=== PATIENT | female | born 1990 | race Caucasian/White ===

== ENCOUNTER 2017-05-07 14:27 | Emergency (ER) | payer MEDICAID ==
[2017-05-07 15:00] VITALS: BP 138/92; PULSE 99; RESP 20; TEMP 99; O2SAT 99
--- NOTE | 2017-05-07 15:06 | C.PDOC ---
History Of Present Illness 26 y/o female, history of depression and suicidal ideation, presents to ED after an argument at her home with family members, brought by police for potential agitation. Patient currently states she has no symptoms of suicidal ideation or homicidal ideation. Time Seen by Provider: 05/07/17 15:03 Chief Complaint (Nursing): Psychiatric Evaluation History Per: Patient History/Exam Limitations: no limitations Current Symptoms Are (Timing): Still Present Suicide/Self Injury Attempted (Context): None Modifying Factor(s): None Associated Symptoms: denies: Depression, Suicidal Thoughts, Suicidal Plan Recent travel outside of the [place]: No Past Medical History Reviewed: Historical Data, Nursing Documentation, Vital Signs Vital Signs: Last Vital Signs Temp 99 F 05/07/17 14:40 Pulse 99 H 05/07/17 14:40 Resp 20 05/07/17 14:40 BP 138/92 H 05/07/17 14:40 Pulse Ox 99 05/07/17 15:10 - Medical History PMH: Bipolar Disorder, Hypothyroidism Family History: States: Unknown Family Hx - Social History Hx Alcohol Use: No Hx Substance Use: No - Immunization History Hx Tetanus Toxoid Vaccination: No Hx Influenza Vaccination: No Hx Pneumococcal Vaccination: No Review Of Systems Except As Marked, All Systems Reviewed And Found Negative. Constitutional: Negative for: Fever, Chills Cardiovascular: Negative for: Chest Pain Respiratory: Negative for: Cough, Shortness of Breath Gastrointestinal: Negative for: Nausea, Vomiting, Abdominal Pain Skin: Negative for: Rash Psych: Negative for: Suicidal ideation Physical Exam - Physical Exam Appears: Non-toxic, No Acute Distress Skin: Normal Color, Warm, Dry Head: Atraumatic, Normacephalic Chest: Symmetrical Cardiovascular: Rhythm Regular Respiratory: Normal Breath Sounds, No Rales, No Rhonchi, No Wheezing Gastrointestinal/Abdominal: Soft, No Tenderness, No Guarding, No Rebound Back: Normal Inspection Extremity: Normal ROM, Capillary Refill (< 2 sec.) Neurological/Psych: Oriented x3, Normal Speech, Normal Cognition ED Course And Treatment O2 Sat by Pulse Oximetry: 99 (RA) Pulse Ox Interpretation: Normal Progress Note: Patient evaluated by crisis in ER. Cleared for discharge. Pt feels comfortable with plan of discharge, advised to follow up with PMD/clinic within 1-2 days. Disposition - Disposition Referrals: [facility] [Outside] [facility] [Outside] Disposition: HOME/ ROUTINE Disposition Time: 15:04 Condition: GOOD Additional Instructions: Follow up with outpatient psych. Return if worsened. Instructions: Bipolar Disorder (ED) - Clinical Impression Clinical Impression: Normal exam - PA / DATA CENTER CONSULTANT / Resident Statement MD/DO has reviewed & agrees with the documentation as recorded. - Scribe Statement The provider has reviewed the documentation as recorded by the Scribe Luis Antonio Lovell All medical record entries made by the Omega were at my direction and personally dictated by me. I have reviewed the chart and agree that the record accurately reflects my personal performance of the history, physical exam, medical decision making, and the department course for this patient. I have also personally directed, reviewed, and agree with the discharge instructions and disposition.
== END 2017-05-07 15:18 | disposition home or self-care (01) ==
LOC: C.ER 14:27
DX: Z00.8 Encounter for other general examination (principal)

== ENCOUNTER 2018-02-03 17:04 | Emergency (ER) | payer OTHER, MEDICAID ==
[2018-02-03 17:17] VITALS: RESP 18
[2018-02-03] MEDS ORDERED: Sodium Chloride 0.9% 1,000 ML IV ONE (18:08)
--- NOTE | 2018-02-03 18:23 | C.PDOC ---
History Of Present Illness 27yo female presents to ED with complaints of a dry cough, and intermittent episodes of tactile fever for the past 1 week. Patient also reports she has intermittent episodes of dizziness, lasting approximately 20-25 seconds for the past week but does not feel dizzy at present. She was evaluated for these symptoms at an urgent care center and no medication was given. She has been taking OTC cough syrup for her symptoms with some relief. She also reports chest and back "soreness" due to the cough. History of hypothyroidsm- doesn't take medication per her doctor. Time Seen by Provider: 02/03/18 17:56 Chief Complaint (Nursing): Flu-like Symptoms History Per: Patient History/Exam Limitations: no limitations Onset/Duration Of Symptoms: Days Current Symptoms Are (Timing): Still Present Sick Contacts (Context): None Associated Symptoms: Fever (tactile), Cough. denies: Nausea, Vomiting, Diarrhea Past Medical History Reviewed: Historical Data, Nursing Documentation, Vital Signs Vital Signs: Last Vital Signs Temp 97.8 F 02/03/18 19:51 Pulse 81 02/03/18 19:51 Resp 18 02/03/18 19:51 BP 113/73 02/03/18 19:51 Pulse Ox 98 02/03/18 19:51 - Medical History PMH: Bipolar Disorder, Hypothyroidism Denies: Chronic Kidney Disease Surgical History: No Surg Hx Family History: States: Unknown Family Hx - Social History Hx Alcohol Use: No Hx Substance Use: Yes - Immunization History Hx Tetanus Toxoid Vaccination: No Hx Influenza Vaccination: No Hx Pneumococcal Vaccination: No Review Of Systems Except As Marked, All Systems Reviewed And Found Negative. Constitutional: Positive for: Fever (tactile), Weakness Cardiovascular: Positive for: Chest Pain (discomfort) Respiratory: Positive for: Cough. Negative for: Sputum Musculoskeletal: Positive for: Back Pain (due to cough) Neurological: Positive for: Dizziness Physical Exam - Physical Exam Appears: Non-toxic, No Acute Distress Skin: Warm, Dry Head: Atraumatic, Normacephalic Eye(s): bilateral: Normal Inspection, PERRL, EOMI Nose: Normal Oral Mucosa: Moist Neck: Normal ROM, Supple ((-) brudzinski and kernig) Chest: Symmetrical, Tenderness (reproducible anterior wall tenderness) Cardiovascular: Rhythm Regular Respiratory: Normal Breath Sounds, No Wheezing Gastrointestinal/Abdominal: Normal Exam, Soft, No Tenderness Back: Normal Inspection Extremity: Normal ROM, No Pedal Edema, No Deformity Neurological/Psych: Oriented x3, Normal Speech, Normal Cognition, Normal Cranial Nerves (2-12 intact, no focal deficits), Normal Motor, Normal Sensation Gait: Steady ED Course And Treatment - Laboratory Results Result Diagrams: 02/03/18 18:31 02/03/18 18:31 O2 Sat by Pulse Oximetry: 95 (RA) Pulse Ox Interpretation: Normal Progress Note: Labs and CXR ordered. Patient given IV Fluids. On reassessment, patient is resting comfortably, and is in no acute distress. No dizziness, chest pain , abdominal pain. remains afebrile. Tolerating po. Denies headache. No cough exhibited throughout er stay. Pt was instructed symptomatic treatment and to follow up with PMD in 1-2 days. Case discussed with Dr Chavez, danyel ryder plan and discharge. Disposition - Disposition Disposition: HOME/ ROUTINE Disposition Time: 19:25 Condition: STABLE Additional Instructions: Follow up with your primary medical doctor or clinic in 2-5 days for further evaluation. Take medications as prescribed. Return to the emergency department at any time if symptoms persist or worsen. Prescriptions: Benzonatate [Tessalon Perle] 100 mg PO TID PRN #15 capsule PRN Reason: Cough Ibuprofen [Motrin] 600 mg PO Q6 PRN #20 tab PRN Reason: Pain, Mild (1-3) Meclizine [Meclizine*] 25 mg PO BID #20 tab Instructions: Viral Upper Respiratory Infection, Adult (DC) Forms: [employer] ([place]) - Clinical Impression Clinical Impression: Dizziness, URI (upper respiratory infection)
[2018-02-03 18:36] LABS: BASO # 0.1 K/uL (0.0-0.2); BASO % 0.9 % (0.0-2.0); EOS # 0.1 K/uL (0.0-0.7); EOS % 1.3 % (0.0-4.0); LYMPH # 1.7 K/uL (1.0-4.3); LYMPH % 27.9 % (20.0-40.0); MEAN CELL VOLUME 77.1 fL (81.0-99.0); MEAN CORPUSCULAR HEMOGLOBIN 25.6 pg (27.0-31.0); MEAN CORPUSCULAR HGB CONC 33.2 g/dL (33.0-37.0); MEAN PLATELET VOLUME 8.3 fL (7.2-11.7); MONO # 0.4 K/uL (0.0-0.8); MONO % 6.4 % (0.0-10.0); NEUT % 63.5 % (50.0-75.0); NRBC % 0.2 % (0.0-2.0); RBC 5.85 Mil/uL (3.80-5.20); RED CELL DISTRIBUTION WIDTH 14.9 % (11.5-14.5); WHITE BLOOD COUNT 6.2 K/uL (4.8-10.8)
--- NOTE | 2018-02-03 18:47 | RAD ---
HISTORY: SOB COMPARISON: No prior. TECHNIQUE: Chest PA and lateral FINDINGS: LUNGS: No active pulmonary disease. PLEURA: No significant pleural effusion identified. No pneumothorax apparent. CARDIOVASCULAR: Normal. OSSEOUS STRUCTURES: No significant abnormalities. VISUALIZED UPPER ABDOMEN: Normal. OTHER FINDINGS: None. IMPRESSION: No active disease.
[2018-02-03 18:48] LABS: ALB/GLOB RATIO 1.1 (1.0-2.1); ALBUMIN 4.1 g/dL (3.5-5.0); ALT/SGPT 17 U/L (9-52); AST/SGOT 24 U/L (14-36); BLOOD UREA NITROGEN 9 mg/dL (7-17); CALCIUM 9.2 mg/dl (8.6-10.4); GFR AFRICAN-AMERICAN > 60; GFR NON-AFRICAN AMERICAN > 60
[2018-02-03 19:07] LABS: HCG,QUALITATIVE URINE NEGATIVE (NEGATIVE)
[2018-02-03 19:09] LABS: SQUAMOUS EPITHIAL 10 /hpf (0-5); URINE BACTERIA RARE (<OCC); URINE BILIRUBIN NEGATIVE (NEGATIVE); URINE BLOOD NEGATIVE (NEGATIVE); URINE CLARITY Hazy (Clear); URINE COLOR Yellow (YELLOW); URINE GLUCOSE (UA) NORMAL (Normal); URINE LEUKOCYTE ESTERASE NEG Leu/uL (Negative); URINE PROTEIN NEGATIVE (NEGATIVE); URINE UROBILINOGEN NORMAL mg/dL (0.2-1.0)
[2018-02-03 19:52] VITALS: BP 113/73; PULSE 81; TEMP 97.8
[2018-02-03 22:09] VITALS: O2SAT 95
== END 2018-02-03 19:52 | disposition home or self-care (01) ==
LOC: C.ER 17:04
DX: J06.9 Acute upper respiratory infection, unspecified (principal); R42 Dizziness and giddiness